=== PATIENT | male | born 1970 | race Caucasian/White ===

== ENCOUNTER 2020-10-13 09:15 | Emergency (ER) | payer BC, OTHER ==
[2020-10-13 09:46] VITALS: BP 121/83; PULSE 84; TEMP 98.3; BMI 30.4
== END 2020-10-13 12:35 | disposition home or self-care (01) ==
LOC: JER 09:15
DX: M71.22 Synovial cyst of popliteal space [Baker], left knee (principal)
CPT/HCPCS: 73562-TC-LT-FY; 93971-TC; 99284-25

== ENCOUNTER 2022-05-31 09:05 | Emergency (ER) | payer BC ==
[2022-05-31 09:13] VITALS: BP 124/81; PULSE 88; RESP 18; TEMP 98.2; BMI 28.2
== END 2022-05-31 11:16 | disposition home or self-care (01) ==
LOC: JERFT 09:05
DX: M76.01 Gluteal tendinitis, right hip (principal)
CPT/HCPCS: 72170-TC-FY; 99284-25

== ENCOUNTER 2025-01-21 02:02 | Inpatient (IN) | payer BC ==
[2025-01-21] MEDS: SODIUM CHLORIDE 0.9% 500 ML INFUS.BAG IV ONE (02:30)
[2025-01-21] MEDS ORDERED: ACETAMINOPHEN INJECTION 100 ML ONE (02:46)
[2025-01-21 03:00] LABS: BASO % 0.7 % (0-2.0); EOS % 3.2 % (0-4.5); HEMATOCRIT 40.1 % (35.4-49); HEMOGLOBIN 13.6 GM/dL (11.7-16.9); LYMPH % 20.9 % (8-40); MCH 29.1 pg (25.7-33.7); MCHC 33.8 g/dl (32.0-35.9); MEAN CELL VOLUME 86.1 fl (80-96); MEAN PLT VOLUME 7.8 fl (7.5-11.1); MONO % 7.7 % (3.8-10.2); NEUT % 67.5 % (42.8-82.8); PLATELET COUNT 210 10^3/uL (134-434); RBC 4.65 M/mm3 (4.00-5.60); RDW 13.7 % (11.9-15.9); WHITE BLOOD COUNT 6.6 K/mm3 (4.0-10.0)
[2025-01-21 03:19] LABS: POTASSIUM 3.7 mmol/L (3.5-5.1)
[2025-01-21 03:21] LABS: CALCIUM 8.7 mg/dL (8.5-10.1)
[2025-01-21 03:22] LABS: ALBUMIN 3.8 g/dl (3.4-5.0); MAGNESIUM 2.1 mg/dL (1.8-2.4)
[2025-01-21 03:25] LABS: CREATININE 1.4 mg/dL (0.55-1.3)
[2025-01-21 03:26] LABS: BILIRUBIN,TOTAL 0.3 mg/dL (0.2-1)
[2025-01-21] MEDS: ACETAMINOPHEN 1000 MG/100 ML BAG IVPB ONE (03:27)
[2025-01-21] MEDS ORDERED: MECLIZINE HCL 12.5 MG TABLET ONE (04:49)
[2025-01-21] MEDS: MECLIZINE HCL 12.5 MG TABLET PO ONE (05:08)
[2025-01-21 12:02] LABS: URINE APPEARANCE CLEAR; URINE BILIRUBIN NEGATIVE (NEGATIVE); URINE COLOR YELLOW; URINE GLUCOSE (UA) NEGATIVE (NEGATIVE); URINE KETONE NEGATIVE (NEGATIVE); URINE LEUK ESTERASE NEGATIVE (NEGATIVE); URINE NITRITE NEGATIVE (NEGATIVE); URINE PROTEIN NEGATIVE (NEGATIVE); URINE UROBILINOGEN 0.2 mg/dL (0.2-1.0)
[2025-01-21 12:10] LABS: INR 1.04 (0.83-1.09); PROTHROMBIN TIME (PATIENT) 11.3 SEC (9.7-13.0)
[2025-01-21 12:12] LABS: ACTIVATED PTT 27.7 SECONDS (25.2-36.5)
[2025-01-21] MEDS ORDERED: CLOPIDOGREL BISULFATE 75 MG TABLET (FP) ONE (17:32)
[2025-01-21] MEDS ORDERED: ATORVASTATIN CA 80 MG TABLET (FP) ONE (17:32)
[2025-01-21] MEDS ORDERED: ASPIRIN 81 MG CHEWABLE TABLETS ONE (17:32)
[2025-01-21] MEDS: CLOPIDOGREL BISULFATE 75 MG TABLET (FP) PO ONE (17:50)
[2025-01-21] MEDS: ASPIRIN 81 MG CHEWABLE TABLETS PO ONE (17:50)
[2025-01-21] MEDS: ATORVASTATIN CA 80 MG TABLET (FP) PO ONE (17:50)
[2025-01-22 04:24] VITALS: BMI 27.6
[2025-01-22] MEDS: ACETAMINOPHEN 325 MG TABLET (FP) PO PRN (07:05)
[2025-01-22 07:59] LABS: HEMATOCRIT 40.3 % (35.4-49); HEMOGLOBIN 13.8 GM/dL (11.7-16.9); MCH 29.6 pg (25.7-33.7); MCHC 34.3 g/dl (32.0-35.9); MEAN CELL VOLUME 86.3 fl (80-96); MEAN PLT VOLUME 8.6 fl (7.5-11.1); PLATELET COUNT 220 10^3/uL (134-434); RBC 4.67 M/mm3 (4.00-5.60); RDW 13.6 % (11.9-15.9)
[2025-01-22 08:08] LABS: POTASSIUM 3.8 mmol/L (3.5-5.1)
[2025-01-22 08:10] LABS: ALBUMIN 3.5 g/dl (3.4-5.0); CALCIUM 9.1 mg/dL (8.5-10.1); MAGNESIUM 2.1 mg/dL (1.8-2.4)
[2025-01-22 08:13] LABS: CREATININE 1.1 mg/dL (0.55-1.3)
[2025-01-22 08:15] LABS: TOT PROT 6.6 g/dl (6.4-8.2)
[2025-01-22 08:16] LABS: BILIRUBIN,TOTAL 0.8 mg/dL (0.2-1)
[2025-01-22] MEDS: CLOPIDOGREL BISULFATE 75 MG TABLET (FP) PO SCH (09:33)
[2025-01-22] MEDS: ASPIRIN 81 MG CHEWABLE TABLETS PO ONE (20:22)
[2025-01-22] MEDS ORDERED: ATORVASTATIN CA 20 MG TABLET (FP) ONE (21:05)
[2025-01-22] MEDS: ATORVASTATIN CA 40 MG TABLET (FP) PO SCH (21:38)
[2025-01-23] MEDS: LOSARTAN POTASSIUM 50 MG TABLET PO SCH (09:36)
[2025-01-23] MEDS: amLODIPine BESYLATE 5 MG TABLET (FP) PO ONE ×2 (17:18→19:26)
[2025-01-23] MEDS ORDERED: ASPIRIN 81 MG CHEWABLE TABLETS PO SCH (17:30)
[2025-01-23] MEDS: ASPIRIN COATED 81 MG TABLET.EC PO ONE (18:03)
[2025-01-24 05:33] VITALS: RESP 18
[2025-01-24] MEDS: ASPIRIN COATED 81 MG TABLET.EC PO SCH (10:57)
[2025-01-24 12:23] VITALS: BP 138/94; PULSE 84; TEMP 98.1
[2025-01-24] MEDS ORDERED: amLODIPine BESYLATE 10 MG TABLET (FP) PO SCH (22:00)
[2025-01-24] MEDS ORDERED: amLODIPine BESYLATE 5 MG TABLET (FP) PO SCH (22:00)
== END 2025-01-24 14:13 | disposition home or self-care (01) | DRG 65 ==
LOC: JER 02:02 → JERBED 15:17 → J4W 18:32
PROVIDERS: ADMIT Student in an Organized Health Care Education/Training Program; ATTEND Internal Medicine
DX: I63.9 Cerebral infarction, unspecified (principal); I16.1 Hypertensive emergency; I10 Essential (primary) hypertension; E78.5 Hyperlipidemia, unspecified; R27.0 Ataxia, unspecified
CPT/HCPCS: 0241U-QW; 36415; 70450-TC; 70496-TC; 70498-TC; 70551-TC; 80053; 80061; 80307; 81003; 82550; 82553; 83036; 83735; 84484; 85025; 85027; 85610; 85730; 93005; 93010; 93306-TC; 93971-TC; 99285-25; J0131

== ENCOUNTER 2025-02-10 18:35 | Inpatient (IN) | payer BC ==
[2025-02-10] MEDS ORDERED: FAMOTIDINE 20 MG/50 ML IVPB 20 MG/50 ML MG IVPB ONE (20:11)
[2025-02-10] MEDS ORDERED: ONDANSETRON 4 MG/2 ML VIAL ONE (20:11)
[2025-02-10 20:16] LABS: ABSOLUTE IMMATURE GRANULOCYTES 0.05 x10^3/uL (0.0-0.031); BASOPHILS # 0.05 x10^3/uL (0.01-0.08); EOSINOPHIL % 0.7 % (0.8-7.0); HEMATOCRIT 47.1 % (40.1-51.0); HEMOGLOBIN 15.8 g/dL (13.7-17.5); MCHC 33.5 g/dl (32.3-36.5); MEAN CELL VOLUME 84.4 fl (79.0-92.2); MEAN PLT VOLUME 10.2 fl (9.4-12.4); MONOCYTE # 0.86 x10^3/uL (0.30-0.82); PLATELET COUNT 309 x10^3/uL (163-337); RDW 12.3 % (12.2-16.1)
[2025-02-10] MEDS: ONDANSETRON 4 MG/2 ML VIAL IVPUSH ONE (20:18)
[2025-02-10] MEDS: FAMOTIDINE 20 MG/50 ML IVPB 20 MG/50 ML MG IVPB ONE (20:18)
[2025-02-10] MEDS: LACTATED RINGERS SOLUTION 1000 ML INFUS.BAG IV ONE (20:18)
[2025-02-10 20:37] LABS: POTASSIUM 4.8 mmol/L (3.5-5.1)
[2025-02-10 20:40] LABS: ALBUMIN 4.7 g/dl (3.4-5.0); BLOOD UREA NITROGEN 15.8 mg/dL (7-18); CALCIUM 10.4 mg/dL (8.5-10.1); MAGNESIUM 2.4 mg/dL (1.8-2.4)
[2025-02-10 20:44] LABS: CREATININE 1.4 mg/dL (0.55-1.3); TOT PROT 8.6 g/dl (6.4-8.2)
[2025-02-10 21:37] LABS: HCV DIAGNOSTIC IN-HOUSE W/RFLX NON-REACTIVE (NONREACTIVE); HIV INTERPRETATION NEGATIVE (NEGATIVE)
[2025-02-10] MEDS ORDERED: KETOROLAC TROMETHAMINE 15 MG/ML VIAL IVPUSH PRN (22:05)
[2025-02-10] MEDS: SODIUM CHLORIDE 1,000 ML IV SCH (22:36)
[2025-02-11 00:24] VITALS: BMI 27.7
[2025-02-11] MEDS: AMPICILLIN NA/SULBACTAM NA 3 GM in SODIUM CHLORIDE 100 ML IVPB SCH (01:03)
[2025-02-11] MEDS: LOPERAMIDE HCL 2 MG CAPSULE PO ONE (01:19)
[2025-02-11] MEDS: HEPARIN NA (PORCINE) 5,000 UNITS/ML 1ML VIAL SQ SCH (05:54)
[2025-02-11 06:52] LABS: HEMATOCRIT 42.1 % (40.1-51.0); HEMOGLOBIN 14.1 g/dL (13.7-17.5); MCHC 33.5 g/dl (32.3-36.5); MEAN CELL VOLUME 84.7 fl (79.0-92.2); MEAN PLT VOLUME 10.5 fl (9.4-12.4); PLATELET COUNT 265 x10^3/uL (163-337); RDW 12.5 % (12.2-16.1)
[2025-02-11 07:12] LABS: POTASSIUM 4.1 mmol/L (3.5-5.1)
[2025-02-11 07:14] LABS: BLOOD UREA NITROGEN 13.8 mg/dL (7-18); CALCIUM 9.1 mg/dL (8.5-10.1)
[2025-02-11 07:16] LABS: ALBUMIN 3.8 g/dl (3.4-5.0)
[2025-02-11 07:18] LABS: CREATININE 1.2 mg/dL (0.55-1.3)
[2025-02-11 07:20] LABS: BILIRUBIN,TOTAL 0.6 mg/dL (0.2-1)
[2025-02-11] MEDS: ASPIRIN COATED 81 MG TABLET.EC PO SCH (09:45)
[2025-02-11] MEDS: PANTOPRAZOLE 40 MG TABLET PO SCH (09:46)
[2025-02-11] MEDS: CLOPIDOGREL BISULFATE 75 MG TABLET (FP) PO SCH (09:46)
[2025-02-11] MEDS: amLODIPine BESYLATE 10 MG TABLET (FP) PO SCH (09:46)
[2025-02-11] MEDS ORDERED: ONDANSETRON 4 MG TABLET PO ONE (21:15)
[2025-02-11] MEDS: ONDANSETRON 8 MG TABLET (FP) PO PRN (21:19)
[2025-02-11] MEDS: ATORVASTATIN CA 40 MG TABLET (FP) PO SCH (21:19)
[2025-02-11] MEDS: ACETAMINOPHEN 1000 MG/100 ML BAG IVPB ONE (21:43)
[2025-02-11] MEDS: MELATONIN 5 MG TABLETS PO ONE (21:44)
[2025-02-12] MEDS: MAG HYDROX/AL HYDROX/SIMETH 30 ML UNIT-DOSE CUP PO ONE (01:59)
[2025-02-12] MEDS: ACETAMINOPHEN 1000 MG/100 ML BAG IVPB ONE (06:09)
[2025-02-12 07:31] LABS: ABSOLUTE IMMATURE GRANULOCYTES 0.01 x10^3/uL (0.0-0.031); BASOPHILS # 0.01 x10^3/uL (0.01-0.08); EOSINOPHIL % 0.1 % (0.8-7.0); EOSINOPHILS # 0.01 x10^3/uL (0.04-0.54); HEMATOCRIT 38.5 % (40.1-51.0); HEMOGLOBIN 12.9 g/dL (13.7-17.5); MCHC 33.5 g/dl (32.3-36.5); MEAN CELL VOLUME 84.4 fl (79.0-92.2); MEAN PLT VOLUME 10.2 fl (9.4-12.4); MONOCYTE # 0.59 x10^3/uL (0.30-0.82); MONOCYTE % 8.2 % (5.3-12.2); PLATELET COUNT 212 x10^3/uL (163-337); RDW 12.6 % (12.2-16.1)
[2025-02-12 07:52] LABS: POTASSIUM 3.6 mmol/L (3.5-5.1)
[2025-02-12 07:54] LABS: BLOOD UREA NITROGEN 8.8 mg/dL (7-18); CALCIUM 8.5 mg/dL (8.5-10.1)
[2025-02-12 07:55] LABS: ALBUMIN 3.4 g/dl (3.4-5.0); MAGNESIUM 1.7 mg/dL (1.8-2.4)
[2025-02-12 07:58] LABS: CREATININE 1.1 mg/dL (0.55-1.3); PHOSPHOROUS 3.1 mg/dL (2.5-4.9)
[2025-02-12 07:59] LABS: BILIRUBIN,TOTAL 0.4 mg/dL (0.2-1); TOT PROT 6.2 g/dl (6.4-8.2)
[2025-02-12] MEDS: MAGNESIUM SULF 50% (8.12 MEQ/2 ML-1 GM VIAL) IVPB ONE (09:14)
[2025-02-12 17:28] LABS: EPI CELLS 4 /uL (0-25.1); HYALINE CASTS 1 /uL (0-3.1); PH,URINE 5.5 (5.0-8.0); URINE APPEARANCE CLEAR; URINE BACTERIA 4 /uL (0-1359); URINE BILIRUBIN NEGATIVE (NEGATIVE); URINE COLOR YELLOW; URINE GLUCOSE (UA) NEGATIVE (NEGATIVE); URINE KETONE NEGATIVE (NEGATIVE); URINE LEUK ESTERASE NEGATIVE (NEGATIVE); URINE NITRITE NEGATIVE (NEGATIVE); URINE PROTEIN NEGATIVE (NEGATIVE); URINE RBC 8 /uL (0-23.9); URINE UROBILINOGEN 0.2 mg/dL (0.2-1.0); URINE WBC 4 /uL (0-25.8)
[2025-02-12] MEDS: MELATONIN 5 MG TABLETS PO PRN (22:48)
[2025-02-13] MEDS: ACETAMINOPHEN 1000 MG/100 ML BAG IVPB PRN (06:01)
[2025-02-13 07:20] LABS: ABSOLUTE IMMATURE GRANULOCYTES 0.01 x10^3/uL (0.0-0.031); BASOPHILS # 0.02 x10^3/uL (0.01-0.08); EOSINOPHIL % 0.4 % (0.8-7.0); EOSINOPHILS # 0.02 x10^3/uL (0.04-0.54); HEMATOCRIT 37.4 % (40.1-51.0); HEMOGLOBIN 12.6 g/dL (13.7-17.5); MCHC 33.7 g/dl (32.3-36.5); MEAN CELL VOLUME 83.9 fl (79.0-92.2); MEAN PLT VOLUME 10.1 fl (9.4-12.4); MONOCYTE # 0.64 x10^3/uL (0.30-0.82); MONOCYTE % 13.5 % (5.3-12.2); PLATELET COUNT 193 x10^3/uL (163-337); RDW 12.5 % (12.2-16.1)
[2025-02-13 07:45] LABS: POTASSIUM 3.9 mmol/L (3.5-5.1)
[2025-02-13 07:47] LABS: CALCIUM 8.1 mg/dL (8.5-10.1)
[2025-02-13 07:48] LABS: ALBUMIN 3.2 g/dl (3.4-5.0); BLOOD UREA NITROGEN 7.9 mg/dL (7-18); MAGNESIUM 1.9 mg/dL (1.8-2.4)
[2025-02-13 07:51] LABS: CREATININE 1.1 mg/dL (0.55-1.3)
[2025-02-13 07:52] LABS: BILIRUBIN,TOTAL 0.4 mg/dL (0.2-1); TOT PROT 6.2 g/dl (6.4-8.2)
[2025-02-13] MEDS ORDERED: PIPERACILLIN/TAZOB 3.375 GM 3.375 GM in DEXTROSE 5%-WATER - 50 ML IVPB SCH (14:15)
[2025-02-13] MEDS: PIPERACILLIN/TAZOB 3.375 GM 50 ML IVPB SCH (16:51)
[2025-02-14 07:32] LABS: HEMATOCRIT 40.7 % (40.1-51.0); HEMOGLOBIN 13.8 g/dL (13.7-17.5); MCHC 33.9 g/dl (32.3-36.5); MEAN CELL VOLUME 83.2 fl (79.0-92.2); MEAN PLT VOLUME 10.6 fl (9.4-12.4); PLATELET COUNT 211 x10^3/uL (163-337); RDW 12.4 % (12.2-16.1)
[2025-02-14 07:54] LABS: POTASSIUM 3.9 mmol/L (3.5-5.1)
[2025-02-14 08:12] LABS: CALCIUM 8.7 mg/dL (8.5-10.1)
[2025-02-14 13:27] LABS: ALBUMIN 3.4 g/dl (3.4-5.0)
[2025-02-14 13:29] LABS: BILIRUBIN,DIRECT 0.1 mg/dL (0.0-0.2)
[2025-02-14 13:34] LABS: BILIRUBIN,TOTAL 0.7 mg/dL (0.2-1); TOT PROT 6.6 g/dl (6.4-8.2)
[2025-02-14 15:09] VITALS: BP 116/75; PULSE 70; RESP 18; TEMP 97.7
[2025-02-15] MEDS ORDERED: PANTOPRAZOLE 40 MG TABLET PO SCH (10:00)
== END 2025-02-14 17:53 | disposition home or self-care (01) | DRG 872 ==
LOC: JER 18:35 → OBSVTOIN 21:23 → JERBED 21:23 → J4W 23:59
PROVIDERS: ADMIT Hospitalist; ATTEND Internal Medicine
DX: A41.9 Sepsis, unspecified organism (principal); A04.9 Bacterial intestinal infection, unspecified; I10 Essential (primary) hypertension; E78.5 Hyperlipidemia, unspecified; R74.01 Elevation of levels of liver transaminase levels; N28.89 Other specified disorders of kidney and ureter; E83.42 Hypomagnesemia
CPT/HCPCS: 36415; 71045-TC-FY; 74177-TC; 74178-TC; 76775-TC; 80048; 80053; 80076; 81003; 82150; 82550; 83690; 83735; 84100; 84484; 85025; 85027; 86140; 86803; 87040; 87045; 87046; 87324; 87389; 87425; 87449; 87798; 93005; 93010; 99285-25; J0131; J1644; Q9967